=== PATIENT | male | born 1975 | race Caucasian/White ===

== ENCOUNTER 2024-05-17 09:20 | Outpatient (AMB) | payer OTHER, SELFPAY ==
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
[2024-05-17 09:31] VITALS: BMI 39.9
== END 2024-05-17 10:05 | disposition home or self-care (01) ==
PROVIDERS: PCP Internal Medicine; Visit Provider Physical Medicine & Rehabilitation
DX: M53.3 Sacrococcygeal disorders, not elsewhere classified (principal); S39.012A Strain of muscle, fascia and tendon of lower back, initial encounter; Z04.2 Encounter for examination and observation following work accident
CPT/HCPCS: 99204

== ENCOUNTER 2024-05-17 11:10 | Outpatient (REF) | payer OTHER, SELFPAY ==
--- NOTE | ~2024-05-17 | XR_ITS ---
EXAMINATION: XR LUMBOSACRAL SPINE CLINICAL INFORMATION: Dorsalgia. COMPARISON: None available. TECHNIQUE: Three views of the lumbosacral spine. FINDINGS: Degenerative changes are present in the lower thoracic spine. Lumbar disc spaces are relatively well preserved. There are some minimal degenerative changes at the superior endplate of L4 and the inferior endplate of L2. No acute fractures. XR/XR lumbar spine 2-3V IMPRESSION: Minimal degenerative changes as described above. Electronically signed by: Dae Jones MD 06/14/2024 09:58 PM EDT
== END 2024-05-17 11:11 | disposition home or self-care (01) ==
LOC: HO.HOSX 11:10
PROVIDERS: Visit Provider Physical Medicine & Rehabilitation
DX: M51.14 Intervertebral disc disorders with radiculopathy, thoracic region (principal); S39.012A Strain of muscle, fascia and tendon of lower back, initial encounter; M53.3 Sacrococcygeal disorders, not elsewhere classified; Y35.892A Legal intervention involving other specified means, bystander injured, initial encounter; Y93.H3 Activity, building and construction; Y92.411 Interstate highway as the place of occurrence of the external cause; Y99.8 Other external cause status
CPT/HCPCS: 72100; 99202

== ENCOUNTER → 2024-06-14 10:43 | Outpatient (BNVA) | payer OTHER, SELFPAY | PROVIDERS: PCP Internal Medicine; Visit Provider Physical Medicine & Rehabilitation ==

== ENCOUNTER 2024-07-12 08:40 | Outpatient (AMB) | payer OTHER, SELFPAY ==
[2024-07-12 08:44] VITALS: BMI 39.9
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
== END 2024-07-12 09:08 | disposition home or self-care (01) ==
PROVIDERS: PCP Internal Medicine; Visit Provider Physical Medicine & Rehabilitation
DX: M54.16 Radiculopathy, lumbar region (principal); M51.362 Other intervertebral disc degeneration, lumbar region with discogenic back pain and lower extremity pain; Z04.2 Encounter for examination and observation following work accident
CPT/HCPCS: 99213

== ENCOUNTER → 2024-07-12 08:40 | Outpatient (BNVA) | payer OTHER, SELFPAY | PROVIDERS: PCP Internal Medicine; Visit Provider Physical Medicine & Rehabilitation | DX: M54.16 Radiculopathy, lumbar region (principal); M51.362 Other intervertebral disc degeneration, lumbar region with discogenic back pain and lower extremity pain | CPT/HCPCS: 99212 ==

== ENCOUNTER 2024-07-20 07:18 | Outpatient (REF) | payer OTHER, SELFPAY ==
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
== END 2024-07-20 07:19 | disposition home or self-care (01) ==
LOC: HO.MRI 07:18
PROVIDERS: PCP Internal Medicine; Visit Provider Physical Medicine & Rehabilitation
DX: M54.16 Radiculopathy, lumbar region (principal); M51.369 Other intervertebral disc degeneration, lumbar region without mention of lumbar back pain or lower extremity pain
CPT/HCPCS: 72148

== ENCOUNTER 2024-08-10 08:39 | Outpatient (AMB) | payer OTHER, SELFPAY ==
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
== END 2024-08-10 09:40 | disposition home or self-care (01) ==
LOC: HO.HOS 08:40
PROVIDERS: PCP Internal Medicine; Visit Provider Physical Medicine & Rehabilitation
DX: S39.012A Strain of muscle, fascia and tendon of lower back, initial encounter (principal); M53.3 Sacrococcygeal disorders, not elsewhere classified
CPT/HCPCS: 99213

== ENCOUNTER → 2024-08-10 08:39 | Outpatient (BNVA) | payer OTHER, SELFPAY | PROVIDERS: PCP Internal Medicine; Visit Provider Physical Medicine & Rehabilitation | DX: S39.012A Strain of muscle, fascia and tendon of lower back, initial encounter (principal); M53.3 Sacrococcygeal disorders, not elsewhere classified | CPT/HCPCS: 99212 ==

== ENCOUNTER 2024-10-11 10:49 | Outpatient (AMB) | payer OTHER, SELFPAY ==
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
== END 2024-10-11 11:18 | disposition home or self-care (01) ==
PROVIDERS: PCP Internal Medicine; Visit Provider Physical Medicine & Rehabilitation
DX: M99.04 Segmental and somatic dysfunction of sacral region (principal); M51.362 Other intervertebral disc degeneration, lumbar region with discogenic back pain and lower extremity pain; S39.012A Strain of muscle, fascia and tendon of lower back, initial encounter
CPT/HCPCS: 99213

== ENCOUNTER → 2024-10-11 10:49 | Outpatient (BNVA) | payer OTHER, SELFPAY | PROVIDERS: PCP Internal Medicine; Visit Provider Physical Medicine & Rehabilitation | DX: M99.04 Segmental and somatic dysfunction of sacral region (principal); M51.362 Other intervertebral disc degeneration, lumbar region with discogenic back pain and lower extremity pain; S39.012A Strain of muscle, fascia and tendon of lower back, initial encounter | CPT/HCPCS: 99212 ==

== ENCOUNTER 2024-11-09 10:34 | Outpatient (AMB) | payer OTHER, SELFPAY ==
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
[2024-11-09 10:41] VITALS: BP 143/91; PULSE 111; RESP 16; O2SAT 96; BMI 40.6
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
== END 2024-11-09 11:59 | disposition home or self-care (01) ==
PROVIDERS: PCP Internal Medicine; Visit Provider Internal Medicine
CPT/HCPCS: 99204

== ENCOUNTER → 2024-11-09 10:34 | Outpatient (BNVA) | payer OTHER, SELFPAY | PROVIDERS: PCP Internal Medicine; Visit Provider Internal Medicine | DX: M53.3 Sacrococcygeal disorders, not elsewhere classified (principal); S73.191A Other sprain of right hip, initial encounter | CPT/HCPCS: 99202 ==

== ENCOUNTER 2025-02-07 07:02 | Outpatient (REF) | payer OTHER, SELFPAY ==
--- NOTE | ~2025-02-07 | FL_ITS ---
EXAMINATION: FL GUIDANCE ONLY HISTORY: M53.3 - Sacrococcygeal disorders, not elsewhere classified COMPARISON: None available. TECHNIQUE: Fluoroscopy time: 0.2 minutes. Cumulative Dose: 12.8 mGy. DAP: 0.102 mGym2 Images: 3. FINDINGS: Images demonstrate a needle and contrast material in the region of the right sacroiliac joint. FL/FL guidance in treatment room IMPRESSION: Fluoroscopy during procedure. Please see procedure report for additional information. Electronically signed by: Florentin Johnson MD 02/07/2025 02:51 PM EDT
--- OUTSIDE RECORDS SUMMARY | 2025-02-07 07:05 | XMS_ITS | Data Portability ---
Author Organization [place] - [facility], Allergy Address [address] [place] [address] [place] [phone] Care Team Providers Care Baker Apprentice Name Role Phone DAVIDA MARY Primary Care [...] Details Recorded Time Tinnitus of right ear 4276925942015 Active 2024 ANGEL MARIE MA, CCC-A [address] [address], [place], [phone], [place] - [facility] 5 10:23:11 Bilateral tinnitus 2036033289573 Active 2024 RIANA Kelley MD [address] [place] [address], [place], [phone], [facility] - [facility] 5 10:56:40 Sensorineur al hearing loss of bilateral ears 847683892 Active 2024 RIANA Kelley MD [address] [place] [address], [place], [phone], [place] - [facility] 10:57:49 Problem Notes None recorded. Procedures Surgical History Date Name Laterality Status Provider Name and Address Organization Details Recorded Time Comp Audio with Tymps & Reflexes (94986 & 06023) completed ANGEL MARIE [place], [facility] [address] [facility],[address] [address], [place], [address], [facility] 10/24/2024 10:22:14 OAE (distortion product, limited - 49524) completed ANGEL MARIE [place], [facility] [address] [facility], [place], [address], [facility] 10/24/2024 10:22:50 Imaging Results Imaging Date Name Status LastModified by Organiz ation Details LastModified Time 10/24/2024 audiogram completed BARCODE Information no t available 10/24/2024 13:51:45 Procedure Notes None recorded. Medical Equipment None Reported. Allergies Allergen ID Allergen Name Allergen Category Reaction Reaction Severity Criticality Documentation Date Start Date Code Code System Note Provider Name and Address Organization Details Recorded Time 476979 Product containin g penicilli n (product) medicatio n Not available Not available Not available 10/24/2024 32101 8001 SNOMED Lyudmila carvajal [facility] 10:30:12 Medications Name Sig Start Date Stop [...] Updated DateTime 10/24/2024 172.72 cm 42.3 kg/m2 837471.68 g Lyudmila Banda [place] - [facility] 10/24/2024 10:29:57 Social History None recorded. Functional Status None recorded. Mental Status None recorded. Family History Nothing Reported. Medical History Condition Response Allergies/Hayfever N Heart Problems N Anxiety N Tonsil Infections N Emphysema N Migraines N Thyroid Problems N COPD N Depression N Developmental Delay N Glaucoma N Nasal or Sinus Problems N Anemia N Immune System Disorder N Anesthesia Complications N Heart Attack ([place]) N Other Skin Condition N Diabetes N Rhinitis N Bleeding Disorder N Food Allergy N Hearing Loss N Arthritis N Hyperlipidemia N Cancer N Stroke N Dementia N Nasal polyps N Asthma N Sleep Disorder N High Cholesterol N GERD/Reflux N Liver Disease N Headaches N Fibromyalgia N Hypertension N Speech Delay N Kidney Disease N Past Encounters Encounter ID Performer Location Encounter Start Date Encounter Closed Date Diagnosis/Indication Diagnosis SNOMED-CT Code Diagnosis ICD10 Code Diagnosis Note [id number] RIANA LEE MD [facility] [address] [address] 10/24/2024 09:26:48 10/24/2024 11:04:28 Tinnitus of right ear [id number] 108 H93.11 Audiologic al evaluation results:Ri ght [...] Ear(uncros sed): {{Normal A bnormal Ab sent [place] galindo Could not maintain a hermetic seal [...] Sensorineu ral hearing loss of bilateral ears 944948674 H90.3 Hearing is borderline normal but worse in the high frequency tones. Health Concerns Section Related Observation LastModified by Organization Detai ls LastModified Time None Recorded Concern Status LastModified by Organization Details LastModified Time None Recorded Advance Directives Directive None Recorded Payers Encounter Date Sequence Insurance Name Policy Number Policy Servin Covered Member ID Servin Member ID Guarantor Name 10/24/2024 [employer] [facility] [employer] [id number] [facility] Jim Cheema Notes Date Note Type [...] the highest frequencies AU. He works for [employer]. RIANA LEE MD [address] [place] [address], [phone], [facility] - [facility] 10/24/2024 11:00:20
== END 2025-02-07 07:03 | disposition home or self-care (01) ==
LOC: CF 07:02
PROVIDERS: Visit Provider Internal Medicine
DX: M53.3 Sacrococcygeal disorders, not elsewhere classified (principal)
CPT/HCPCS: 27096; J2003; J2795; Q9967

== ENCOUNTER 2025-02-07 08:47 | Outpatient (AMB) | payer OTHER, SELFPAY ==
[2025-02-07 09:10] VITALS: BP 120/76; PULSE 94; RESP 16; O2SAT 95
--- NOTE | 2025-02-07 09:10 | MHC.OFFVIS ---
Vital Signs 02/07/25 09:10 02/07/25 10:02 BP 120/76 122/86 Blood Pressure Location Lt brachial Lt brachial Position Sitting Sitting Respiration 16 16 Pulse 94 90 Pulse Source Pulse Oximeter Pulse Oximeter Pulse Oximetry (%) 95 97 Oxygen Delivery Method Room Air Room Air Intake Visit Reasons: Right Dx SIJ inj Enrollment Representative Required: No Allergies Penicillins [PENICILLINS] Allergy (Unknown, Verified 02/07/25 09:11) UNKNOWN Medication List - Last Reconciled 02/07/25 by Rocio Bush LPN allopurinol 600 mg PO DAILY atorvastatin 40 mg PO DAILY testosterone 2 tubes transdermal QAM HPI HPI Right Dx SIJ inj: Details: Patient presents for scheduled procedure. Denies any recent cough, cold, infection, fever or other significant changes in medical history since last office visit. [facility] Social History (Updated 08/10/24 @ 09:00 by Giovanna Velez RN) Alcohol intake: current Patient Tobacco Use Status: Never used Tobacco service: No Current occupational status: employed Current occupation: [employer], right hand dominant Physical Exam Vital Signs: Last Vital Signs Pulse 90 02/07/25 10:02 Resp 16 02/07/25 10:02 BP 122/86 02/07/25 10:02 Pulse Ox 97 02/07/25 10:02 Oxygen Delivery Method Room Air 02/07/25 10:02 Office Procedures AMB Joint Injection/Aspiration Joint Injection/Aspiration Details: Diagnostic Sacroiliac Joint Injection, Right The procedure, its benefits, and its risks were explained and written informed consent was obtained from the patient. Immediately prior to starting the procedure, a time-out safety check was conducted. The patient's identification, procedure name, procedure site, and procedure laterality were confirmed with the patient. ? Patient was placed prone on the fluoroscopy table and the lumbosacral area was prepped using ChloraPrep and draped with sterile draped in standard fashion. The C-arm was rotated in a contralateral oblique fashion until the medial border of the iliac crest no longer foreshadowed the posterior sacroiliac joint line. The skin and subcutaneous tissue was anesthetized using 1 mL of 0.75% plain lidocaine with 1.5-inch 25-gauge needle in the middle region of the joint line.? A 3.5-inch 22-gauge spinal needle with small bend on the tip was slowly advanced towards the joint line, coaxial to the x-ray beam. Once bony content was obtained, the needle was easily slid into the intra-articular space.? Intra-articular needle position was confirmed using 1ml Omnipaque contrast and lateral fluoroscopy.? A total volume of 2.5mL of solution containing 0.5% of ropivacaine was injected intra-articularly. The stylet was reinserted and needle was removed. The patient tolerated the procedure well. Patient denied any lower extremity weakness or numbness. Patient was observed for 30 min and was discharged after fulfilling the standard discharge criteria. Coding 38547 - Sacroiliac Procedure code (CPT) selection complete Office Meds lidocaine (PF) 10 mg/mL (1 %) injection solution Performing Provider: Jose Angel Monteiro MD Performing Location: [facility] Administered by: Jose Angel Monteiro MD on 02/07/25 10:27 Dose Route Admin Location Dispensed Lot Number Expiration Date NDC Animation Director 5 mL Infiltration 5 mL Assessment & Plan Assessment & Plan (1) Somatic dysfunction of right sacroiliac joint: Code(s): M99.04 - Segmental and somatic dysfunction of sacral region Category: Medical Plan Patient is status post right diagnostic sacroiliac joint injection. Patient tolerated procedure well and was discharged home in stable condition with discharge instructions. All questions were answered. We will follow-up via telephone or in clinic to assess response to therapy. A follow-up appointment was made during today's visit. Orders: Orders FL guidance in treatment room Today Machelle Partida APRN, ONLINE TRADER M53.3 - Sacrococcygeal disorders, not elsewhere classified AMB Joint Injection/Aspiration Today Jose Angel Monteiro MD M99.04 - Segmental and somatic dysfunction of sacral region Medications: New lidocaine (PF) 5 mL Infiltration ONCE 2 mL 0RF Jose Angel Monteiro MD M99.04 - Segmental and somatic dysfunction of sacral region Coding Level of Care Code Procedure Only Diagnoses Somatic dysfunction of right sacroiliac joint M99.04 CPT Codes Coding - Joint 9: 50479 - Sacroiliac ([id number])
[2025-02-07 10:02] VITALS: BP 122/86; PULSE 90; RESP 16; O2SAT 97
== END 2025-02-07 09:43 | disposition home or self-care (01) ==
LOC: HO.PMCPRC 08:47
PROVIDERS: PCP Internal Medicine; Visit Provider Internal Medicine
DX: M99.04 Segmental and somatic dysfunction of sacral region (principal)
CPT/HCPCS: 27096

== ENCOUNTER 2025-02-11 09:40 | Outpatient (AMB) | payer OTHER, SELFPAY ==
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
[2025-02-11 09:44] VITALS: BP 148/88; PULSE 80; RESP 16; O2SAT 98; BMI 39.9
--- OUTSIDE RECORDS SUMMARY | 2025-02-11 10:33 | XMS_ITS | Data Portability ---
Author Organization [place] - [facility], Allergy Address [address] [place] [address] [place] [id number] Care Team Providers Care Budget Director Name Role Phone DAVIDA MARY Primary Care [...] Details Recorded Time Tinnitus of right ear [id number] Active 2024 ANGEL MARIE MA, CCC-A [address] [address], [place], [phone], [place] - [facility] 5 10:23:11 Bilateral tinnitus [id number] Active 2024 RIANA Kelley MD [address] [place] [address], [place], [phone], [facility] - [facility] 5 10:56:40 Sensorineur al hearing loss of bilateral ears 128629996 Active 2024 RIANA Kelley MD [address] [place] [address], [place], [phone], [place] [facility] 10:57:49 Problem Notes None recorded. Procedures Surgical History Date Name Laterality Status Provider Name and Address Organization Details Recorded Time Comp Audio with Tymps & Reflexes - 34969 & 45213 completed ANGEL MARIE MA, [facility] [address] [facility],[address] [address], [place], [phone], [facility] 10/24/2024 10:22:14 OAE distortion product, limited - 40876 completed ANGEL MARIE MA, [facility] [address] [facility], [place], [phone], [facility] 10/24/2024 10:22:50 Imaging Results Imaging Date Name Status LastModified by Organiz ation Details LastModified Time 10/24/2024 audiogram completed BARCODE Information no t available 10/24/2024 13:51:45 Procedure Notes None recorded. Medical Equipment None Reported. Allergies Allergen ID Allergen Name Allergen Category Reaction Reaction Severity Criticality Documentation Date Start Date Code Code System Note Provider Name and Address Organization Details Recorded Time 247206 Product containin g penicilli n (product) medicatio n Not available Not available Not available 10/24/2024 99697 [id number] SNBRADEN carvajal, [facility] 10:30:12 Medications Name Sig Start Date [...] Updated DateTime 10/24/2024 172.72 cm 42.3 kg/m2 774045.68 g Lyudmila Banda [place] - [facility] 10/24/2024 10:29:57 Social History None recorded. [...] Disorder N Anesthesia Complications N Heart Attack (IA) N Other Skin Condition N Diabetes N Rhinitis N Bleeding Disorder N Food Allergy N Arthritis N Hearing Loss N Hyperlipidemia N Cancer N Stroke N Dementia N Nasal polyps N Asthma N High Cholesterol N Sleep Disorder N GERD/Reflux N Liver Disease N Headaches N Fibromyalgia N Hypertension N Speech Delay N Kidney Disease N Past Encounters Encounter ID Performer Location Encounter Start Date Encounter Closed Date Diagnosis/Indication Diagnosis SNOMED-CT Code Diagnosis ICD10 Code Diagnosis Note [id number] RIANA LEE MD [facility] [address] [phone] 10/24/2024 09:26:48 10/24/2024 11:04:28 Tinnitus of right ear [id number] H93.11 Audiologic al evaluation results:Ri ght [...] Ear(uncros sed): {{Normal A bnormal Ab sent Quenemo galindo Could not maintain a hermetic seal [...] Sensorineu ral hearing loss of bilateral ears [id number] H90.3 Hearing is borderline normal but worse in the high frequency tones. Health Concerns Section Related Observation LastModified by Organization Detai ls LastModified Time None Recorded Concern Status LastModified by Organization Details LastModified Time None Recorded Advance Directives Directive None Recorded Payers Encounter Date Sequence Insurance Name Policy Number Policy Servin Covered Member ID Servin Member ID Guarantor Name 10/24/[address] [facility] [employer] [employer] [id number] [facility] Jim Cheema Notes Date Note Type Note [...] the highest frequencies AU. He works for [employer]. RIANA LEE MD [address] [place] [address], [phone], [facility] - [facility] 10/24/2024 11:00:20
== END 2025-02-11 10:28 | disposition home or self-care (01) ==
LOC: HO.PMC 09:41
PROVIDERS: PCP Internal Medicine; Visit Provider Internal Medicine
DX: S73.191A Other sprain of right hip, initial encounter (principal); M51.362 Other intervertebral disc degeneration, lumbar region with discogenic back pain and lower extremity pain
CPT/HCPCS: 99214

== ENCOUNTER → 2025-02-11 09:40 | Outpatient (BNVA) | payer OTHER, SELFPAY | PROVIDERS: PCP Internal Medicine; Visit Provider Internal Medicine | DX: M51.362 Other intervertebral disc degeneration, lumbar region with discogenic back pain and lower extremity pain (principal); S73.191A Other sprain of right hip, initial encounter; X58.XXXA Exposure to other specified factors, initial encounter; Y93.9 Activity, unspecified; Y92.9 Unspecified place or not applicable; Y99.9 Unspecified external cause status | CPT/HCPCS: 99212 ==

== ENCOUNTER 2025-09-13 08:27 | Outpatient (AMB) | payer OTHER, SELFPAY ==
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
== END 2025-09-13 09:52 | disposition home or self-care (01) ==
LOC: HO.HOS 08:27
PROVIDERS: PCP Internal Medicine; Visit Provider Physical Medicine & Rehabilitation
DX: M54.16 Radiculopathy, lumbar region (principal); M51.362 Other intervertebral disc degeneration, lumbar region with discogenic back pain and lower extremity pain
CPT/HCPCS: 99214

== ENCOUNTER → 2025-09-13 08:27 | Outpatient (BNVA) | payer OTHER, SELFPAY | PROVIDERS: PCP Internal Medicine; Visit Provider Physical Medicine & Rehabilitation | DX: M51.16 Intervertebral disc disorders with radiculopathy, lumbar region (principal) | CPT/HCPCS: 99212 ==